=== PATIENT | male | born 1995 | race Caucasian/White ===

== ENCOUNTER 2022-01-11 12:45 | Emergency (ER) | payer OTHER, SELFPAY ==
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
[2022-01-11 13:07] VITALS: BP 117/72; PULSE 97; RESP 16; TEMP 37; O2SAT 100
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
[2022-01-11 13:47] LABS: Basophils Absolute Auto 0.1 K/mm3 (0.0-0.1); Basophils Percent Auto 0.7 % (0.2-1.2); Eosinophils Absolute Auto 0.1 K/mm3 (0-0.3); Eosinophils Percent Auto 1.2 % (0-4.4); Hematocrit 44.6 % (42.0-52.0); Hemoglobin 15.1 g/dL (14.0-18.0); Immature Granulocyte Absolute 0.03 K/mm3 (0.00-0.031); Immature Granulocyte Percent A 0.3 % (0-0.5); Lymphocytes Percent Auto 29.4 % (18.3-44.2); Mean Corpuscular HGB Conc 33.9 g/dl (32-36); Mean Corpuscular Hemoglobin 29.8 pg (26-34); Mean Corpuscular Volume 88.1 fl (80-100); Mean Platelet Volume 8.9 fl (7.4-10.4); Monocytes Absolute Auto 0.9 K/mm3 (0.1-0.6); Monocytes Percent Auto 8.3 % (2.6-8.5); Neutrophils Absolute Auto 6.8 K/mm3 (1.3-6.7); Neutrophils Percent Auto 60.1 % (45.5-73.1); Platelet Count Result 352 k/mm3 (150-375); Red Blood Count 5.06 M/mm3 (4.6-6.20); Red Cell Distribution Width 12.4 % (11.5-14.5); White Blood Count 11.2 K/mm3 (4.5-10.0)
[2022-01-11 14:01] LABS: Alanine Aminotransferase 18 U/L (6-50); Albumin Level 4.8 g/dL (3.5-5.1); Alkaline Phosphatase 88 U/L (38-126); Anion Gap 7 mmol/L (8-16); Aspartate Amino Transferase 18 U/L (17-59); Bilirubin,Total 0.5 mg/dL (0.2-1.3); Blood Urea Nitrogen 14 mg/dL (9-20); Calcium 9.4 mg/dL (8.4-10.2); Carbon Dioxide 30 mmol/L (22-30); Chloride 102 mmol/L (98-107); Estimated CRCL calculation 122 ml/min; Estimated Glomerular Filt Rate > 60; Glucose 242 mg/dL (65-110); Potassium 4.3 mmol/L (3.4-5.0); Sodium 139 mmol/L (137-145)
[2022-01-11 14:23] LABS: Prothrombin Time 13.2 Seconds (11.1-14.7)
[2022-01-11 14:24] LABS: Partial Thromboplastin Time 26.8 SECONDS (22.3-36.8)
[2022-01-11 16:15] VITALS: BP 142/76; PULSE 84; RESP 17; O2SAT 98
== END 2022-01-11 16:20 | disposition home or self-care (01) ==
PROVIDERS: Emergency Provider General Practice
DX: S09.90XA Unspecified injury of head, initial encounter (principal); S05.02XA Injury of conjunctiva and corneal abrasion without foreign body, left eye, initial encounter; E78.5 Hyperlipidemia, unspecified; E11.42 Type 2 diabetes mellitus with diabetic polyneuropathy; Z79.4 Long term (current) use of insulin; F17.210 Nicotine dependence, cigarettes, uncomplicated; V43.52XA Car driver injured in collision with other type car in traffic accident, initial encounter
CPT/HCPCS: 36415; 70450; 70486; 71046; 72125; 80053; 85025; 85610; 85730; 99284; A9270

== ENCOUNTER 2023-03-01 13:23 | Emergency (ER) | payer OTHER, SELFPAY ==
[2023-03-01 13:32] VITALS: BP 125/71; PULSE 83; RESP 20; TEMP 36.6; O2SAT 100
--- NOTE | 2023-03-01 13:38 | ED.DENTAL ---
HPI - Dental/Oral General Chief complaint: Dental/Oral Stated complaint: Toothache Time Seen by Provider: 03/01/23 13:34 History of Present Illness HPI Narrative: Patient is a 27-year-old male with history of type 1 diabetes here with left upper dental pain. He states that about a month ago 1 of his tooth broke on the left upper side. He states he has been having some intermittent pain over the last 1 week however it significantly worsened about 1 hour prior to arrival. The pain is sharp, severe, located mainly on the left upper side, radiates into the jaw. He notes associated with some swelling of that left upper jaw. He states he tried brush his teeth, use mouthwash with no improvement of symptoms. He went to his mother's due to the pain and she brought him here in the emergency department for evaluation. He is unable to get into any of the dentists that he has called. He denies any difficulty swallowing or breathing. He notes his blood sugars have been running between 150 and 200 which is normal for him. He has been attempting to get into a dentist however he has had difficulty which is why he let his dental pain procedure for the last 1 month. MD Complaint: tooth pain Location: Tooth # (poor dentition throughout) Teeth map: 1. Dental carries present, tender on exam, no obvious abscess. 2. Dental carries present, tender on exam, no obvious abscess. 3. Dental carries present, tender on exam, no obvious abscess. Duration: constant Severity: severe Relieving factors: nothing Related Data Home Medications Medication Instructions Recorded Confirmed insulin glargine 100 unit/mL ml subcut 01/11/22 subcutaneous solution (Lantus U-100 Insulin) insulin lispro 100 unit/mL 01/11/22 01/11/22 subcutaneous cartridge (Humalog U-100 Insulin) Allergies Allergy/AdvReac Type Severity Reaction Status Date / Time No Known Allergies Allergy Verified 03/01/23 13:32 Review of Systems Review of Systems: All systems reviewed & are unremarkable except as noted in HPI and below PMFSH Past Medical History Medical History (Updated 03/01/23 @ 13:59 by Jennifer Leslie MD) Diabetes mellitus Hyperlipidemia Peripheral neuropathy Surgical History Surgical History (Updated 01/11/22 @ 13:45 by Kamilah Cabrera MD) Previous back surgery Social History Social History (Updated 01/11/22 @ 13:45 by Kamilah Cabrera MD) Smoking packs per day: 1 Smoking cigarettes per day: 20.0 Smoking status: Current every day smoker Exam Const: General: healthy appearing Nutritional Appearance: well nourished Orientation/consciousness: patient oriented x3 Limitations: no limitations HENMT: Head: normal to inspection Mouth: Yes Normal oral and palatal mucosa present Teeth and gingiva: dentition normal (poor dentition throughout) and abnormal tooth and associated gingiva upper left first bicuspid tender and other (dental carries present, fractured tooth, no obvious apical abscess) Throat: posterior oropharynx normal and uvula midline Neck: Neck: normal visual inspection Other: shotty anterior left cervical lymphadenopathy Chest: Chest palpation & inspection: normal inspection of the chest Resp: Effort & Inspection: normal respiratory effort Cardio: Rate: regular rate Rhythm: regular rhythm GI: GI Palp: Yes Soft to palpation and Yes Tenderness to palpation present (GI) (nontender) Skin: General skin exam: normal color Neuro: General: patient oriented x3 Extrem: General: normal to inspection Psych: Mental Status: mental status grossly normal Course Course Emergency Course: Chart review performed. Patient reportedly here with left upper jaw pain. Patient has documented history of DM T1. Triage vitals stable, patient afebrile. Protecting his airway without difficulty. No obvious abscess seen. Will check blood glucose and start patient on abx and pain meds. Will refer to dental clinic. Blood sug
[2023-03-01 13:52] LABS: Glucose Point of Care 199 mg/dl (65-105)
== END 2023-03-01 14:19 | disposition home or self-care (01) ==
PROVIDERS: Emergency Provider Student in an Organized Health Care Education/Training Program; PCP Nurse Practitioner Family
DX: K02.9 Dental caries, unspecified (principal); E10.42 Type 1 diabetes mellitus with diabetic polyneuropathy; E78.5 Hyperlipidemia, unspecified; F17.210 Nicotine dependence, cigarettes, uncomplicated; Z79.4 Long term (current) use of insulin
CPT/HCPCS: 82948; 99283

== ENCOUNTER 2023-07-10 19:37 | Emergency (ER) | payer OTHER, SELFPAY ==
[2023-07-10 19:48] VITALS: BP 102/61; PULSE 83; RESP 16; TEMP 36.8; O2SAT 100
--- NOTE | 2023-07-10 20:13 | ED.SKABFB ---
HPI - Skin/Abscess/Foreign Bdy General Chief complaint: Skin/Abscess/Foreign Body Stated complaint: Wound Check Time Seen by Provider: 07/10/23 20:13 Source: patient Mode of arrival: ambulatory Limitations: no limitations History of Present Illness HPI narrative: 27 yo M with hx of type 1 DM presents with infected abrasion to R hand. Pt states he stuck his hand into his rafa pocket 4 days ago causing abrasion to dorsal aspect R hand. States blisters and then popped open and now red and swollen. States rafa pockets are tight, not really sure what caused the abrasion. Also wants redness, swelling to R 3rd, 4th toe looked at. States steel toe boots bend in when walking and thinks irritating foot. All systems reviewed and negative except as noted above. Related Data Home Medications Medication Instructions Recorded Confirmed insulin lispro 100 unit/mL 01/11/22 01/11/22 subcutaneous cartridge (Humalog U-100 Insulin) blood-glucose meter (OneTouch 07/10/23 07/10/23 Ultra2 Meter) insulin glargine 100 unit/mL (3 unit subcut 07/10/23 mL) subcutaneous pen (Basaglar KwikPen U-100 Insulin) lancets 07/10/23 07/10/23 Allergies Allergy/AdvReac Type Severity Reaction Status Date / Time No Known Allergies Allergy Verified 07/10/23 19:51 Review of Systems Review of Systems: CONSTITUTIONAL: Denies fever, chills, or sweats. EYES: Denies visual changes, redness, or discharge. ENT: Denies rhinorrhea, congestion, sore throat, or otalgia. CARDIOVASCULAR: Denies chest pain, palpitations, or edema. RESPIRATORY: Denies cough or dyspnea. GASTROINTESTINAL: Denies abdominal pain, nausea, vomiting, or diarrhea. GENITOURINARY: Denies dysuria or hematuria. SKIN: Reports redness and swelling to R hand and top of R foot 3rd and 4th toes. MUSCULOSKELETAL: Denies back pain, joint pain, or myalgia. NEUROLOGIC: Denies headache, numbness, or weakness. PSYCHIATRIC: Denies anxiety or depression. All other systems reviewed are negative, except as documented in HPI. [facility] Past Medical History Medical History (Updated 07/11/23 @ 00:01 by Rosy Daranulfo) Diabetes mellitus Hyperlipidemia Peripheral neuropathy Surgical History Surgical History (Updated 01/11/22 @ 13:45 by Kamilah Cabrera MD) Previous back surgery Social History Social History (Updated 01/11/22 @ 13:45 by Kamilah Cabrera MD) Smoking packs per day: 1 Smoking cigarettes per day: 20.0 Smoking status: Current every day smoker Comments At time of signature, agree with nursing past medical, surgical, social and family history. There is no relevant family history pertinent to the presenting complaint. Exam Narrative: GENERAL: This is a well-nourished, well-developed patient, in no apparent distress. HEAD: normocephalic, atraumatic. EYES: PERRL. Sclera clear/white. Vision is grossly intact. EARS: External ears normal NOSE: External nose normal NECK: Neck supple, non-tender without lymphadenopathy, masses or thyromegaly. CARDIOVASCULAR: Regular rate and rhythm without murmurs, gallops, or rubs. RESPIRATORY: Clear to auscultation. Breath sounds equal bilaterally. No wheezes, rales, or rhonchi. SKIN: warm, Dry, intact with no suspicious lesions or rash, good texture and turgor. erythema, swelling, serous drainage, open wound of dorsal aspect R hand, 1st metacarpal. tender on palpation, mild warmth. approx. 3x4cm. Redness, mild swelling to dorsal aspect to 3rd, 4th toe. no drainage. distal NV intact. no necrosis or odor. NEURO: awake, alert, and oriented to person, place and time. There were no obvious focal neurologic abnormalities. EXTREMITIES: No joint tenderness, effusion, or edema noted. Course Course Level of Care: Express Care Visit Vital Signs Vital signs: Vital Signs Temperature 36.8 C 07/10/23 19:48 Pulse Rate 83 07/10/23 19:48 Respiratory Rate 16 07/10/23 19:48 Blood Pressure 102/61 07/10/23 19:48 Pulse
== END 2023-07-10 20:25 | disposition home or self-care (01) ==
PROVIDERS: Emergency Provider Nurse Practitioner Family; PCP Nurse Practitioner Family
DX: S60.410A Abrasion of right index finger, initial encounter (principal); L08.9 Local infection of the skin and subcutaneous tissue, unspecified; X58.XXXA Exposure to other specified factors, initial encounter; F17.210 Nicotine dependence, cigarettes, uncomplicated; E78.5 Hyperlipidemia, unspecified; E10.42 Type 1 diabetes mellitus with diabetic polyneuropathy; Z79.4 Long term (current) use of insulin
CPT/HCPCS: 99213; G0463

== ENCOUNTER 2023-07-26 23:40 | Emergency (ER) | payer BC, MEDICAID, SELFPAY ==
[2023-07-26 23:47] VITALS: BP 109/65; PULSE 77; RESP 18; TEMP 36.7; O2SAT 98
--- NOTE | 2023-07-27 00:50 | ED.GENADULT ---
HPI - General Adult General Chief complaint: Ear Stated complaint: FOREIGN BODY IN LEFT EAR Time Seen by Provider: 07/27/23 00:50 Source: patient Mode of arrival: ambulatory Limitations: no limitations History of Present Illness HPI narrative: This is a 19-year-old male presents to the ED with chief complaint of possible foreign body in the left ear. Reports that he was using cough swab and notice that the tip was broken off. he is concerned that it is stuck in the left ear canal. Denies significant ear pain or drainage. Denies any further complaints. Related Data Home Medications Medication Instructions Recorded Confirmed insulin lispro 100 unit/mL 01/11/22 01/11/22 subcutaneous cartridge (Humalog U-100 Insulin) blood-glucose meter (OneTouch 07/10/23 07/10/23 Ultra2 Meter) insulin glargine 100 unit/mL (3 unit subcut 07/10/23 mL) subcutaneous pen (Basaglar KwikPen U-100 Insulin) lancets 07/10/23 07/10/23 Allergies Allergy/AdvReac Type Severity Reaction Status Date / Time No Known Allergies Allergy Verified 07/26/23 23:54 Review of Systems Review of Systems: All systems as dictated in [facility] Past Medical History Medical History (Updated 07/27/23 @ 00:52 by Anthony Washington PA-C) Diabetes mellitus Hyperlipidemia Peripheral neuropathy Surgical History Surgical History (Updated 01/11/22 @ 13:45 by Kamilah Cabrera MD) Previous back surgery Social History Social History (Updated 01/11/22 @ 13:45 by Kamilah Cabrera MD) Smoking packs per day: 1 Smoking cigarettes per day: 20.0 Smoking status: Current every day smoker Exam Narrative: GENERAL: Well-appearing, well-nourished, and in no acute distress. ENT: cerumen noted throughout the left ear canal. TM intact. No evidence of any foreign body. Nares clear, no rhinorrhea or epistaxis. Mucous membranes moist. Oropharynx without tonsillar hypertrophy exudate or other lesions. MSK: Normal range of motion. No edema. SKIN: Warm, dry, no rash. NEURO: Alert and oriented x3. No focal deficits. Course Vital Signs Vital signs: Vital Signs Temperature 98.1 F 07/26/23 23:47 Pulse Rate 77 07/26/23 23:47 Respiratory Rate 18 12/29/23 23:47 Blood Pressure 109/65 07/26/23 23:47 Pulse Oximetry 98 07/26/23 23:47 Oxygen Delivery Room Air 07/26/23 23:47 Temperature 98.1 F 07/26/23 23:47 Pulse Rate 77 07/26/23 23:47 Respiratory Rate 18 07/26/23 23:47 Blood Pressure 109/65 07/26/23 23:47 Pulse Oximetry 98 07/26/23 23:47 Oxygen Delivery Room Air 07/26/23 23:47 Medical Decision Making Vital Signs Vital Signs: Vital Signs Temperature 98.1 F 07/26/23 23:47 Pulse Rate 77 07/26/23 23:47 Respiratory Rate 18 07/26/23 23:47 Blood Pressure 109/65 07/26/23 23:47 Pulse Oximetry 98 07/26/23 23:47 Oxygen Delivery Room Air 07/26/23 23:47 Temperature 98.1 F 07/26/23 23:47 Pulse Rate 77 07/26/23 23:47 Respiratory Rate 18 07/26/23 23:47 Blood Pressure 109/65 07/26/23 23:47 Pulse Oximetry 98 07/26/23 23:47 Oxygen Delivery Room Air 07/26/23 23:47 Discharge Plan Discharge Clinical Impression: Encounter for medical screening examination Patient Disposition: Home, Self-Care Condition: Stable Instructions: Antibiotic Form Additional Instructions: Your exam is reassuring today. No evidence of foreign body in ear canal. Earwax noted. Try using over the counter earwax removal kit to help with ear fullness sensation. IF you have any new or worsening symptoms, please return to ER for further evaluation. Prescriptions: No Action (DME) blood-glucose meter [OneTouch Ultra2 Meter] Misc MISCELLANEOUS (DME) lancets [OneTouch UltraSoft Lancets] Misc MISCELLANEOUS insulin glargine [Basaglar KwikPen U-100 Insulin] 100 unit/mL (3 mL) insulin pen SUBCUT cephalexin 500 mg capsule 500 mg
== END 2023-07-27 00:57 | disposition home or self-care (01) ==
LOC: ANHED 07-27 00:53
PROVIDERS: Emergency Provider Physician Assistant; PCP Nurse Practitioner Family
DX: Z03.823 Encounter for observation for suspected inserted (injected) foreign body ruled out (principal); E78.5 Hyperlipidemia, unspecified; E11.42 Type 2 diabetes mellitus with diabetic polyneuropathy; Z79.4 Long term (current) use of insulin; F17.210 Nicotine dependence, cigarettes, uncomplicated
CPT/HCPCS: 99281

== ENCOUNTER 2023-11-19 12:04 | Emergency (ER) | payer BC, MEDICAID, SELFPAY ==
--- NOTE | ~2023-11-19 | CT_ITS ---
EXAMINATION: CT brain wo con DATE: 11/19/2023 13:24 INDICATION: Migraine headache. TECHNIQUE: Computed tomography (CT) of the head was performed without intravenous contrast. The mA wa s adjusted according to patient size. Iterative reconstruction technique was employed. The dose-lengt h product was 681.00 mGy-cm. COMPARISON: None FINDINGS: There is no intracranial hemorrhage, acute infarction, or abnormal intracranial mass lesion . The ventricles are normal in size. The orbits are normal. There is mild mucosal thickening in the e thmoid sinuses. The mastoid air cells are normal. There is material in left tympanic cavity. IMPRESSION: 1. Normal brain. Reviewed, dictated and finalized at location E. IMPRESSION: 1. Normal brain.
[2023-11-19 12:18] VITALS: BP 120/65; PULSE 81; RESP 20; TEMP 36.9; O2SAT 98
[2023-11-19 13:19] LABS: Basophils Absolute Auto 0.1 K/mm3 (0.0-0.1); Basophils Percent Auto 0.8 % (0.2-1.2); Eosinophils Absolute Auto 0.3 K/mm3 (0-0.3); Eosinophils Percent Auto 3.2 % (0-4.4); Hematocrit 37.9 % (42.0-52.0); Hemoglobin 13.3 g/dL (14.0-18.0); Immature Granulocyte Absolute 0.01 K/mm3 (0.00-0.031); Immature Granulocyte Percent A 0.1 % (0-0.5); Lymphocytes Absolute Auto 2.88 K/mm3 (0.9-3.2); Lymphocytes Percent Auto 33.7 % (18.3-44.2); Mean Corpuscular HGB Conc 35.1 g/dl (32-36); Mean Corpuscular Hemoglobin 30.2 pg (26-34); Mean Corpuscular Volume 86.1 fl (80-100); Mean Platelet Volume 9.4 fl (7.4-10.4); Monocytes Absolute Auto 0.6 K/mm3 (0.1-0.6); Neutrophils Absolute Auto 4.7 K/mm3 (1.3-6.7); Neutrophils Percent Auto 55.2 % (45.5-73.1); Platelet Count Result 248 k/mm3 (150-375); White Blood Count 8.6 K/mm3 (4.5-10.0)
--- NOTE | 2023-11-19 13:25 | ED.GENADULT ---
HPI - General Adult General Chief complaint: Headache Stated complaint: migraine Time Seen by Provider: 11/19/23 12:16 History of Present Illness HPI narrative: Taurus Soliman is a 27 y/o male who presents today with reported hx of DM type 1 who has been experiencing new onset migraines off and on for about 3 weeks. He explains that he is following up with his PCP regarding this and he recently had a medication change for his DM and they are wondering if that is the cause. He is scheduled to get labs and follow up Saturday with his PCP He reports that today while he was at work he had acute onset of the headache migraine returning and felt that he needed to leave work. 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 EYES: Denies visual changes, redness, or discharge. ENT: Denies rhinorrhea, congestion, sore throat, or otalgia. CARDIOVASCULAR: Denies chest pain, palpitations, or edema. RESPIRATORY: Denies cough or dyspnea. GASTROINTESTINAL: Denies abdominal pain, nausea, vomiting, or diarrhea. GENITOURINARY: Denies dysuria or hematuria. SKIN: Denies rash or itching. MUSCULOSKELETAL: Denies back pain, joint pain, or myalgia. NEUROLOGIC: Reports acute headache today and explains this has been going on for the past 3 weeks off and on. No numbness, dizziness, or weakness. PSYCHIATRIC: Denies anxiety or depression. [facility] Past Medical History Medical History Diabetes mellitus Hyperlipidemia Peripheral neuropathy Surgical History Surgical History Previous back surgery Social History Social History Smoking packs per day: 1 Smoking cigarettes per day: 20.0 Smoking status: Current every day smoker Exam Narrative: GENERAL: Well-appearing, well-nourished, and in no acute distress. HEAD: Normocephalic, atraumatic. EYES: PERRLA and EOMI. ENT: Nares clear, no rhinorrhea or epistaxis. Mucous membranes moist. Oropharynx without tonsillar hypertrophy exudate or other lesions. NECK: Supple. No adenopathy or masses. No carotid bruits or JVD CHEST: Clear to auscultation. No respiratory distress. No wheezes rales or rhonchi HEART: Regular rate and rhythm. No murmur heard. Normal peripheral pulses. ABDOMEN: Soft, nontender, nondistended, normal active bowel sounds. EXTREMITIES: Normal range of motion. No edema. SKIN: Warm, dry, no rash. NEURO: No focal deficits. Alert and oriented x3. PSYCH: Normal mood and affect. Course Vital Signs Vital signs: Vital Signs Temperature 36.9 C 11/19/23 12:18 Pulse Rate 81 11/19/23 12:18 Respiratory Rate 20 11/19/23 12:18 Blood Pressure 120/65 11/19/23 12:18 Pulse Oximetry 98 11/19/23 12:18 Oxygen Delivery Room Air 11/19/23 12:18 Temperature 36.8 C 11/19/23 15:51 Pulse Rate 67 11/19/23 15:51 Respiratory Rate 15 11/19/23 15:51 Blood Pressure 119/73 11/19/23 15:51 Pulse Oximetry 100 11/19/23 15:51 Oxygen Delivery Room Air 11/19/23 12:18 Medical Decision Making MDM Narrative Medical decision making narrative: 27 y/o male with new onset migraines that have b
[2023-11-19 13:29] LABS: Alanine Aminotransferase 20 U/L (6-50); Albumin Level 4.5 g/dL (3.5-5.1); Alkaline Phosphatase 66 U/L (38-126); Anion Gap 5 mmol/L (4-12); Aspartate Amino Transferase 19 U/L (17-59); Bilirubin,Total 0.5 mg/dL (0.2-1.3); Blood Urea Nitrogen 20 mg/dL (9-20); Calcium 9.3 mg/dL (8.4-10.2); Carbon Dioxide 27 mmol/L (22-30); Chloride 101 mmol/L (98-107); Estimated CRCL calculation 113 ml/min; Estimated Glomerular Filt Rate > 60; Glucose 346 mg/dL (65-110); Potassium 4.5 mmol/L (3.4-5.0); Sodium 133 mmol/L (137-145)
[2023-11-19] MEDS: PROCHLORPERAZINE EDISYLATE 10 MG/2 ML VIAL IV PUSH (13:42)
[2023-11-19] MEDS: KETOROLAC 30 MG/ML VIAL (*BKC) IV PUSH (13:42)
[2023-11-19] MEDS: diphenhydrAMINE HCl INJ 50 MG/ML VIAL 25 MG IV PUSH (13:42)
[2023-11-19] MEDS: SODIUM CHLORIDE 0.9% IV 1,000 ML 999 ML IV CONT (13:42)
[2023-11-19 13:55] VITALS: BP 118/66; PULSE 63; RESP 15; O2SAT 100
[2023-11-19 15:51] VITALS: BP 119/73; PULSE 67; RESP 15; TEMP 36.8; O2SAT 100
== END 2023-11-19 15:50 | disposition home or self-care (01) ==
PROVIDERS: Emergency Provider Nurse Practitioner Family; PCP Nurse Practitioner Family
DX: G43.919 Migraine, unspecified, intractable, without status migrainosus (principal); E78.5 Hyperlipidemia, unspecified; E10.42 Type 1 diabetes mellitus with diabetic polyneuropathy; F17.210 Nicotine dependence, cigarettes, uncomplicated; Z79.4 Long term (current) use of insulin
CPT/HCPCS: 36415; 70450; 80053; 85025; 96361; 96374; 96375; 99284; J0780; J1200; J1885; J7030

== ENCOUNTER 2025-05-05 16:36 | Emergency (ER) | payer OTHER, MEDICAID, SELFPAY ==
--- NOTE | ~2025-05-05 | XR_ITS ---
EXAMINATION: XR ankle RT min 3V, 05/05/2025 17:20 CDT HISTORY: twisted ankle, lat ankle pain COMPARISON: No comparisons available. Findings: No acute fracture or malalignment. No significant degenerative changes. Soft tissues unremarkable. Impression: No acute fracture or malalignment. Reviewed, dictated and finalized at location P. Impression: No acute fracture or malalignment.
[2025-05-05 16:46] VITALS: BP 112/70; PULSE 77; RESP 20; TEMP 36.8; O2SAT 97
--- NOTE | 2025-05-05 17:18 | ED.FALL ---
HPI - Fall General Chief Complaint: Fall Stated Complaint: right ankle pain Time Seen by Provider: 05/05/25 17:07 Source: patient and RN notes reviewed Mode of arrival: ambulatory Limitations: no limitations History of Present Illness HPI Narrative: 29-year-old male patient presents today with a right ankle injury. 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 Injury occurred approximately 4 hours prior to arrival. His pain is 2/10 at rest, and a 6/10 with weight-bearing. No OTC interventions prior to arrival. Denies numbness or tingling in the ankle or foot. Related Data Home Medications ?Medication ?Instructions ?Recorded ?Confirmed ?Last Taken ?Type blood-glucose meter (OneTouch 07/10/23 04/09/24 Unknown History Ultra2 Meter) lancets 07/10/23 04/09/24 Unknown History ergocalciferol (vitamin D2) 1,250 1,250 mcg PO WEEKLY 03/23/24 04/09/24 Unknown History mcg (50,000 unit) capsule folic acid 1 mg tablet 10 mg PO WEEKLY 03/23/24 04/09/24 Unknown History ibuprofen 600 mg tablet 600 mg PO Q6H PRN pain 03/23/24 05/05/25 Unknown History insulin aspart U-100 100 unit/mL 1 unit subcut TID 03/23/24 04/09/24 Unknown History (3 mL) subcutaneous pen (Novolog FlexPen U-100 Insulin aspart) insulin glargine U-300 conc 300 25 unit subcut QHS 03/23/24 04/09/24 Unknown History unit/mL (1.5 mL) subcutaneous pen (Toujeo SoloStar U-300 Insulin) metaxalone 800 mg tablet mg PO TID 03/23/24 04/09/24 Unknown History Allergies Allergy/AdvReac Type Severity Reaction Status Date / Time No Known Allergies Allergy Verified 05/05/25 16:55 [facility] Past Medical History Medical History Peripheral neuropathy Hyperlipidemia Diabetes mellitus Surgical History Surgical History H/O left wrist surgery History of placement of ear tubes Previous back surgery Social History Social History Smoking packs per day: 0.5 Smoking cigarettes per day: 10.0 Smoking status: Current every day smoker Tobacco type: cigarettes and e-cigarettes/vaping Alcohol intake: never Substance use: never Do You Feel Safe in your Home?: Yes Lack of Transportation: No Lack of Food: Often True Current Housing: I Have Housing Concerned About Future Housing: YES Difficulty Paying Gas/Electric Bills: YES Difficulty Paying for Meds: No Currently Unemployed: No Education: High School Diploma/GED Difficulty w/ Childcare or Family Care: No Gender identity (if verbalized by the patient): Male Comments At time of signature, I have reviewed and agree with nursing past medical, surgical, social and family history unless otherwise noted. Please see nursing chart for further information. There is no relevant family history pertinent to the presenting complaint Exam Narrative: GENERAL: Well-appearing, well-nourished, and in no acute distress. HEAD: Normocephalic, atraumatic. EYES: EOMI. No redness or drainage. Conjunctivae normal. ENT: Mucous membranes pink and moist. NECK: Normal AROM. CHEST: No respiratory distress. EXTREMITIES: Right ankle: Mild tenderness to the lateral malleolus and anterior ankle. No edema, ecchymosis, erythema noted. Distal sensation intact. Capillary refill normal. Pedal pulse normal. Full range of motion of the ankle with mild increased pain. SKIN: Warm, dry, no rash. Capillary refill normal. Normal skin turgor. NEURO: No focal deficits. Alert and oriented x3. Gait steady. PSYCH: Normal affect. No signs of depression or anxiety. Course Course Level of Care: Express Care Visit Vital Signs Vital signs: Vital Signs Temperature 98.3 F 05/05/25 16:46 Pulse Rate 77 05/05/25 16:46 Respiratory Rate 20 05/05/25 16:46 Blood Pressure 112/70 05/05/25 16:46 Pulse Oximetry 97 05/05/25 16:46 Oxygen Delivery Room Air 05/05/25 16:46 Temperature 98.3 F 05/05/25 16:46 Pulse Rate 77 05/05/25 16:46 Respiratory Rate 20 05/05/25 16:46 Blood Pressure 112/70 05/05/25 16:46 Pulse Oximetry 97 05/05/25 16:46 Oxygen Delivery Room Air 05/05/25 16:46 Reviewed MDM - Fall MDM Narrative Medical decision making narrative: 29-year-old male patient presents today with a right ankle injury. 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 No OTC interventions prior to arrival. Upon exam, patient has some mild tenderness to the anterior and lateral ankle without any additional abnormalities. Neurovascularly intact. X-ray negative. Recommend conservative treatment with ice, NSAIDs, and rest for 7-10 days with orthopedic follow-up if symptoms persist. Patient needs to follow up with his employer regarding workman's compensation follow-up. Patient agrees with plan. Anticipatory guidance given. Vital signs stable. Differential Diagnosis Differential diagnosis: Likely other (Ankle sprain, ankle fracture) Imaging Data Radiologist's impression: ITS Impressions Ankle X-Ray 05/05/25 17:32 Impression: No acute fracture or malalignment. Critical Care Time Critical Care Time Critical Care Time: No Discharge Plan Discharge Clinical Impression: Right ankle sprain Qualifiers: Encounter type: initial encounter Involved ligament of ankle: unspecified ligament Qualified Code(s): S93.401A - Sprain of unspecified ligament of right ankle, initial encounter Patient Disposition: Home Condition: Stable Instructions: Ankle Sprain (DC) Additional Instructions: Your x-ray is negative today. Elevate and ice the ankle. Take an anti-inflammatories such as Aleve or ibuprofen, if able. It is recommended that you follow up with orthopedic in 7-10 days if your symptoms are not improving. Please follow-up with your employer regarding workman's compensation requirements/follow-up, as this cannot be provided at [facility]. Patient Language: Bhutanese Prescriptions: No Action (DME) blood-glucose meter [OneTouch Ultra2 Meter] Misc MISCELLANEOUS (DME) lancets [OneTouch UltraSoft Lancets] Misc MISCELLANEOUS insulin glargine U-300 conc [Toujeo SoloStar U-300 Insulin] 300 unit/mL (1.5 mL) insulin pen 25 unit subcut QHS insulin aspart U-100 [Novolog FlexPen U-100 Insulin] 100 unit/mL (3 mL) insulin pen 1 unit subcut TID Rx Instructions: 1 unit for every 15 carbs folic acid 1 mg tablet 10 mg PO WEEKLY ergocalciferol (vitamin D2) 1,250 mcg (50,000 unit) capsule 1,250 mcg PO WEEKLY metaxalone 800 mg tablet PO TID ibuprofen 600 mg tablet 600 mg PO Q6H PRN (Reason: pain) Baqsimi 3 mg/actuation spray,non-aerosol 3 mg intranasal ONCE PRN (Reason: hypoglycemia) Qty: 1 1RF Rx Instructions: as a single dose (DME) Dexcom G7 Sensor Device See Rx Instructions .ROUTE .MEDSUPPLY Qty: 9 1RF Rx Instructions: change every 10 days (DME) OneTouch Ultra Test Strip See Rx Instructions .ROUTE .MEDSUPPLY Qty: 400 1RF Rx Instructions: check four times daily prochlorperazine maleate [Compazine] 5 mg tablet 5 mg PO Q8H PRN (Reason: nausea and vomiting) 2 Days Qty: 14 0RF Follow-up/Referrals: JEY,VIJAY RHODES [Primary Care Provider] Jet Benjamin MD [Physician, Orthopedics] Stand Alone Forms: Work/School Release IP Time of Disposition: 17:55
== END 2025-05-05 18:02 | disposition home or self-care (01) ==
PROVIDERS: Emergency Provider Nurse Practitioner; PCP Nurse Practitioner Family
DX: S93.401A Sprain of unspecified ligament of right ankle, initial encounter (principal); X50.1XXA Overexertion from prolonged static or awkward postures, initial encounter; Y99.0 Civilian activity done for income or pay; E11.42 Type 2 diabetes mellitus with diabetic polyneuropathy; Z79.4 Long term (current) use of insulin; E78.5 Hyperlipidemia, unspecified; F17.210 Nicotine dependence, cigarettes, uncomplicated; F17.290 Nicotine dependence, other tobacco product, uncomplicated
CPT/HCPCS: 73610; 99213; G0463